=== PATIENT | female | born 1990 | race Caucasian/White ===

== ENCOUNTER 2022-12-01 10:45 | Observation (INO) ==
--- NOTE | 2022-12-01 10:55 | ED.PDOC ---
General ED Provider: Dr. JANES LOPES MD Chief Complaint: Rectal Pain Stated Complaint: Patient presents with generalized abdominal pain, lightheadedness, nausea, hematochezia for 12 hours. She has had 5 bloody stools. Patient reports similar episode 2 years ago for which no bleeding site could be located. Denies fever, chills, melena, hematemesis or urinary tract symptoms. She did have a hysterectomy one month ago and did receive antibiotics at that time. Time Seen by Provider: 12/01/22 10:55 Mode of Arrival: Walk-In Information Source: Patient Primary Care Provider: REKHA GOODWIN MD Nursing and Triage Documentation Reviewed and Agree: Yes Does patient meet sepsis criteria?: No System Inflammatory Response Syndrome: Not Applicable Sepsis Protocol: For patient's 13 years and over: Temp is 96.8 and below OR 101 and greater Pulse >90 BPM Resp >20/minute Acutely Altered Mental Status Are patient's symptoms suggestive of a new infection, such as: -Pneumonia -Skin, Soft Tissue -Endocarditis -UTI -Bone, Joint Infection -Implantable Device -Acute Abdominal Infection -Wound Infection -Meningitis -Blood Stream Catheter Infection -Unknown Review of Systems Review Of Systems Constitutional: Reports No symptoms Eyes: Reports No symptoms Ears, Nose, Mouth, Throat: Reports No symptoms Respiratory: Reports No symptoms Cardiac: Reports No symptoms GI: Reports Abdominal pain, Diarrhea, Nausea and Rectal bleeding : Reports No symptoms Musculoskeletal: Reports No symptoms Skin: Reports No symptoms Neurological: Reports No symptoms Endocrine: Reports No symptoms Hematologic/Lymphatic: Reports No symptoms All Other Systems: Reviewed and Negative [facility] Medical History (Updated 12/01/22 @ 14:57 by JANES LOPES MD) Anemia Anxiety Surgical History (Updated 12/01/22 @ 10:58 by LILO CESPEDES RN) H/O parotidectomy H/O: hysterectomy History of appendectomy History of S/P cholecystectomy Tubal ligation status Female Reproductive History Menstrual Hx Hysterectomy: Yes Hx Tubal Ligation: Yes Physical Exam Physical Exam Appearance: Reports Ill-appearing, Well-nourished and Other (Patient is alert and in NAD.) Ill-appearing: Moderate Pain Distress: Mild Eyes: Reports Not Examined ENT: Reports Nose normal, Oropharynx normal and Dry mucosa Neck: Supple Respiratory: Reports Airway patent, Breath sounds clear and Breath sounds equal Cardiovascular: Reports No rub, No murmur and Tachycardia GI/: Reports Soft, No masses, Bowel sounds normal, No Organomegaly and Tender (Mild to moderate generalized tenderness without peritoneal signs.) Musculoskeletal: Reports Normal strength and No edema Skin: Reports Warm, Dry and Normal color Neurological: Reports Alert and Oriented Psychiatric: Reports Affect appropriate and Mood appropriate Interpretation Radiology Interpretation Radiology Interpretation By: Radiologist Exam Interpreted: CT Scan (no acute intraabdominal findings) Re-Evaluation Re-Evaluation Time of Re-Evaluation: 12:30 Status: Improved Vital Signs Stable: Yes Pain Level: Pain and nausea resolved. No further bloody stools. Re-Evaluation Time of Re-Evaluation: 14:19 Status: Unchanged Vital Signs Stable: Yes Pain Level: no further bloody stools Appearance: NAD Physician Notification Case Discussed Physician Notified: Dr Goodwin Time of Notification: 14:55 Comments: Patient care discussed with Dr Goodwin. She will be admitted for observation and have repeat H/H levels obtained. Critical Care Note Critical Care Note Total Critical Care Time (mins): 0 Course Course Hematology/Chemistry: 12/01/22 14:02 12/01/22 10:53 Orders, Labs, Meds: Lab Review 12/01/22 12/01/22 12/01/22 10:53 10:53 14:02 WBC 7.00 6.67 RBC 4.30 3.43 L Hgb 12.6 10.2 L Hct 39.7 31.9 L D MCV 92.3 93.0 MCH 29.3 29.7 MCHC 31.7 L 32.0 RDW Coeff of Luis 13.0 12.9 Plt Count 321 250 Immature Gran % (Auto) 0.1 0.1 Neut % (Auto) 52.4 56.4 Lymph % (Auto) 36.0 33.9 [place] % (Auto) 7.1 6.3 Eos % (Auto) 4.1 3.0 Baso % (Auto) 0.3 0.3 Neut # (Auto) 3.7 3.8 Lymph # (Auto) 2.5 2.3 [place] # (Auto) 0.5 0.4 Eos # (Auto) 0.3 0.2 Baso # (Auto) 0.0 0.0 Immature Gran # (Auto) 0.0 0.0 Sodium 136.6 Potassium 3.38 L Chloride 105.5 Carbon Dioxide 25.2 Anion Gap 9.28 BUN 9.9 Creatinine 0.68 Estimated GFR (MDRD) 100.00 BUN/Creatinine Ratio 14.55 Glucose 98.1 Calcium 9.56 Total Bilirubin 0.35 AST 41.4 H ALT 38.7 H Alkaline Phosphatase 70.1 Total Protein 8.50 H Albumin 4.72 Globulin 3.78 Albumin/Globulin Ratio 1.24 Lipase 67.8 Orders Category Date Time Status PLACE PAT[facility] (MONITORED BED ADMISSION 12/01/22 14:49 Ordered ) ACTIVITY .Up ad Kimmy CARE 12/01/22 14:49 Ordered INTAKE & OUTPUT Q8HR CARE 12/01/22 14:49 Ordered IP: INSERT SALINE LOCK ONCE CARE 12/01/22 14:49 Ordered NPO REMINDER: IMAGING ONCE CARE 12/01/22 11:00 Completed TELEMETRY MONITORING TELE CARE 12/01/22 14:49 Ordered VITAL SIGNS Q8HR CARE 12/01/22 14:49 Ordered REGULAR DIET DIETARY 12/01/22 Dinner Ordered BMP [BASIC METABOLIC PANEL] Timed LAB 12/02/22 07:00 Ordered CBC W/ AUTO DIFF Routine LAB 12/02/22 07:00 Ordered CBC W/ AUTO DIFF Stat LAB 12/01/22 10:53 Completed CBC W/ AUTO DIFF Stat LAB 12/01/22 14:02 Completed CBC W/ AUTO DIFF Timed LAB 12/01/22 22:00 Ordered CMP [COMPREHENSIVE METABOLIC PANEL] Stat LAB 12/01/22 10:53 Completed COVID [SARS COV-2 RNA RAPID DESHAWN] Stat LAB 12/01/22 Ordered LIPASE Stat LAB 12/01/22 10:53 Completed URINALYSIS C & S IF INDICATED Stat LAB 12/01/22 10:59 Uncollected Ketorolac Tromethamine [Toradol] MEDS 12/01/22 10:59 Discontinued 30 mg IVP ONCE STA Ondansetron HCl/Pf [Zofran 4 mg/2 ml] MEDS 12/01/22 10:59 Discontinued 8 mg IVP ONCE STA Ondansetron HCl/Pf [Zofran 4 mg/2 ml] MEDS 12/01/22 14:49 Ordered 8 mg IVP Q8H PRN Potassium Chloride in 0.9%NaCl [Sodium Chloride 0.9%- MEDS 12/01/22 15:00 Ordered KCl 20 Meq] 1,000 ml IV 100 mls/hr Sodium Chloride 0.9% [Sodium Chloride] 1,000 ml MEDS 12/01/22 10:59 Discontinued IV BOLUS Sodium Chloride 0.9% [Sodium Chloride] 1,000 ml MEDS 12/01/22 12:29 Discontinued IV BOLUS RESUSCITATION STATUS Routine OTHERS 12/01/22 14:[address] ABDOMEN/PELVIS W CONTRAST Stat RADS 12/01/22 10:59 Completed Medications Discontinued Medications Generic Name Dose Route Start Last Admin Trade Name Freq PRN Reason Stop Dose Admin Sodium Chloride 1,000 mls @ 1,000 mls/hr 12/01/22 10:59 12/01/22 11:07 Sodium Chloride IV 12/01/22 11:58 1,000 mls/hr BOLUS STA Administration Sodium Chloride 1,000 mls @ 1,000 mls/hr 12/01/22 12:29 12/01/22 12:33 Sodium Chloride IV 12/01/22 13:28 1,000 mls/hr BOLUS STA Administration Ketorolac Tromethamine 30 mg 12/01/22 10:59 12/01/22 11:07 Ketorolac Tromethamine 30 Mg/Ml Vial IVP 12/01/22 11:00 30 mg ONCE STA Administration Ondansetron HCl 8 mg 12/01/22 10:59 12/01/22 11:06 Ondansetron Hcl/Pf 4 Mg/2 Ml Sdv IVP 12/01/22 11:00 8 mg ONCE STA Administration Vital Signs: Temp Pulse Resp BP Pulse Ox 12/01/22 10:46 98.7 F 116 H 20 113/65 100 Discharge Plan Discharge Patient Disposition: PLACED OBSERVATION Discharge Problem: Acute lower gastrointestinal bleeding, Hypokalemia Prescriptions: No Action No Reported Medications 0 Qty: 0 Did you review [place] [employer] for ALL controlled substances?: Not Applicable ED Provider: JANES LOPES Condition: Stable Physician Progress Note: []
[2022-12-01] MEDS ORDERED: ZOFRAN 4 MG/2 ML IVP STA (10:59)
[2022-12-01] MEDS ORDERED: SODIUM CHLORIDE 1,000 ML IV STA ×2 (10:59→12:29)
[2022-12-01] MEDS ORDERED: TORADOL IVP STA (10:59)
[2022-12-01 11:05] LABS: BASOPHILS % (AUTO) 0.3 % (0.0-3.0); EOSINOPHILS # (AUTO) 0.3 K/ul (0.0-0.7); EOSINOPHILS % (AUTO) 4.1 % (0.0-7.0); HEMATOCRIT 39.7 % (37.0-47.0); HEMOGLOBIN 12.6 g/dl (12.0-16.0); IMMATURE GRANULOCYTE % (AUTO) 0.1 % (0.0-5.0); LYMPHOCYTES # (AUTO) 2.5 K/uL (0.60-3.4); MEAN CORPUSCULAR HEMOGLOBIN 29.3 pg (27.0-31.0); MEAN CORPUSCULAR HGB CONC 31.7 (31.8-35.4); MEAN CORPUSCULAR VOLUME 92.3 fl (81.0-99.0); MONOCYTES # (AUTO) 0.5 K/uL (0.4-2.0); MONOCYTES % (AUTO) 7.1 (0-10); NEUTROPHILS # (AUTO) 3.7 K/ul (2.0-6.9); NEUTROPHILS % (AUTO) 52.4 % (42.2-75.2); PLATELET COUNT 321 10^3/uL (140-440)
[2022-12-01 11:13] LABS: ALANINE AMINOTRANSFERASE 38.7 U/L (0-35); ALBUMIN 4.72 g/dL (3.5-5.0); ALKALINE PHOSPHATASE 70.1 U/L (38-126); ASPARTATE AMINO TRANSFERASE 41.4 U/L (14-36); BILIRUBIN,TOTAL 0.35 mg/dL (0.2-1.3); BLOOD UREA NITROGEN 9.9 mg/dL (7-17); CALCIUM 9.56 mg/dL (8.4-10.2); CARBON DIOXIDE 25.2 mmol/L (22-30.0); CHLORIDE 105.5 mmol/L (98-107); CREATININE 0.68 mg/dL (0.60-1.30); GLUCOSE 98.1 mg/dL (74-106); LIPASE 67.8 U/L (23-300); POTASSIUM 3.38 mmol/L (3.5-5.1); SODIUM 136.6 mmol/L (134.5-145); TOTAL PROTEIN 8.5 g/dL (6.3-8.2)
--- NOTE | 2022-12-01 12:23 | CT ---
EXAM: CT ABDOMEN AND PELVIS WITH CONTRAST HISTORY: Hematochezia TECHNIQUE: CT acquisition of the abdomen and pelvis from the lower thorax through the pelvis followin g IV contrast administration. 2-D coronal and sagittal reformatted images were obtained from the axi al source images. CT Dose Reduction Techniques Performed: Yes. COMPARISON: None. FINDINGS: Lower Thorax: Within normal limits. Liver: No mass. Normal morphology. Biliary: There has been cholecystectomy Pancreas: No mass or evidence of pancreatitis. No duct dilation. Spleen: No mass. No splenomegaly. Adrenals: No mass. Kidneys/Ureters: There is right renal cortical scarring. There is a 4 mm right upper pole stone. Th ere is no left nephrolithiasis. No hydronephrosis. GI Tract: No bowel dilation. No bowel wall thickening. Peritoneal Cavity: No ascites. No free air. Retroperitoneum: No mass or fluid collection. Lymph Nodes: No lymphadenopathy. Vasculature: No aortic aneurysm. Pelvis: Left ovarian 2.2 x 1.2 cm hemorrhagic versus corpus luteal cyst. Bladder is normal. Bones/Soft Tissues: No fracture or lytic lesion. Visualized abdominal wall soft tissues are unremarka ble. IMPRESSION: 1. No acute inflammatory process. Right nephrolithiasis and renal cortical scarring. Cholecystecto my. All CT scans are performed using dose optimization techniques as appropriate to the performed exam an d include at least one of the following: Automated exposure control, adjustment of the mA and/or kV according t o size, and the use of iterative reconstruction technique.
[2022-12-01 14:06] LABS: BASOPHILS % (AUTO) 0.3 % (0.0-3.0); EOSINOPHILS # (AUTO) 0.2 K/ul (0.0-0.7); HEMOGLOBIN 10.2 g/dl (12.0-16.0); IMMATURE GRANULOCYTE % (AUTO) 0.1 % (0.0-5.0); LYMPHOCYTES # (AUTO) 2.3 K/uL (0.60-3.4); LYMPHOCYTES % (AUTO) 33.9 (10.0-50.0); MEAN CORPUSCULAR HEMOGLOBIN 29.7 pg (27.0-31.0); MONOCYTES # (AUTO) 0.4 K/uL (0.4-2.0); MONOCYTES % (AUTO) 6.3 (0-10); NEUTROPHILS # (AUTO) 3.8 K/ul (2.0-6.9); NEUTROPHILS % (AUTO) 56.4 % (42.2-75.2); PLATELET COUNT 250 10^3/uL (140-440); RDW COEFFICIENT OF VARIATION 12.9 % (11.6-14.8); RED BLOOD COUNT 3.43 10^6/ul (4.20-5.40); WHITE BLOOD COUNT 6.67 K/ul (4.6-10.2)
[2022-12-01 14:08] LABS: HEMATOCRIT 31.9 % (37.0-47.0)
[2022-12-01] MEDS ORDERED: ZOFRAN 4 MG/2 ML IVP PRN (14:49)
--- NOTE | 2022-12-01 15:05 | PCM ---
Chief Complaint Chief Complaint: bloody bowel movements History of Present Illness History of Present Illness: Patient was admitted after having had multiple grossly bloody stools, nausea, abdominal pain and lightheadedness. She had a pulse in the 120s on admission and her Hgb at that time was 12.6. Patient received 2L NS and her pulse fell into the 80s and repeat Hgb was noted to be 10.2. CT scan of the abd/pelvis failed to demonstrate a source of the GI bleeding. She is admitted for observation and repeat H/H levels. Review of Systems Constitutional: Reports No symptoms Eyes: Reports No symptoms Ears: Reports No symptoms Nose: Reports No symptoms Throat: Reports No symptoms Mouth: Reports No symptoms Respiratory: Reports No symptoms Cardiovascular: Reports Other (lightheadedness) Gastrointestinal: Reports Abdominal pain, Nausea and Hematochezia Genitourinary: Reports No symptoms Neurological: Reports No symptoms Musculoskeletal: Reports No symptoms Skin: Reports No symptoms Immunology: Reports No symptoms Hematology: Reports No symptoms Endocrine: Reports No symptoms Psychiatric: Reports No symptoms Habits: Denies Tobacco use, Substance use, Alcohol use or Other Allergies Allergies Allergy/AdvReac Type Severity Reaction Status Date / Time acetaminophen [From Vicodin] AdvReac Unknown Verified 12/01/22 10:59 hydrocodone [From Vicodin] AdvReac Unknown Verified 12/01/22 10:59 tramadol AdvReac Unknown Verified 12/01/22 10:59 PFSH Medical History (Updated 12/01/22 @ 14:57 by JANES LOPES MD) Anemia Anxiety Surgical History (Updated 12/01/22 @ 10:58 by LILO CESPEDES RN) H/O parotidectomy H/O: hysterectomy History of appendectomy History of S/P cholecystectomy Tubal ligation status Medications Medications: Medications Generic Name Dose Route Start Last Admin Trade Name Freq PRN Reason Stop Dose Admin Potassium Chloride/Sodium Chloride 1,000 mls @ 100 mls/hr 12/01/22 15:00 Sodium Chloride 0.9%-Kcl 20 Meq IV .Q10H MONE Ondansetron HCl 8 mg 12/01/22 14:49 Ondansetron Hcl/Pf 4 Mg/2 Ml Sdv IVP Q8H PRN Nausea / Vomiting Body Composition Height: 5 ft Weight: 66 kg Body Mass Index (BMI): 28.4 Vital Signs Temperature: 98.7 F Pulse Rate: 116 Respiratory Rate: 20 Blood Pressure: 113/65 O2 Sat by Pulse Oximetry: 100 Physical Examination Appearance: Reports Ill-appearing, No pain distress and Well-nourished Ill-appearing: Mild Pain Distress: None Eyes: Reports RENALDO, EOMI and Conjunctiva clear ENT: Reports Nose normal and Oropharynx normal Neck: Supple Respiratory: Reports Airway patent, Breath sounds clear and Breath sounds equal Cardiovascular: Reports Pulses normal, No rub, No murmur and Tachycardia GI/: Reports Soft, No masses, Bowel sounds normal, No Organomegaly and Tender (Mild generalized tenderness. No peritoneal signs.) Musculoskeletal: Reports Normal strength, ROM intact and No edema Skin: Reports Warm, Dry and Normal color Neurological: Reports Sensation intact, Motor intact, Alert and Oriented Psychiatric: Reports Affect appropriate and Mood appropriate Lab/Tests/Diagnostic Imaging Lab/Tests/Diagnostic Imaging: Lab Review 12/01/22 12/01/22 12/01/22 10:53 10:53 14:02 WBC 7.00 6.67 RBC 4.30 3.43 L Hgb 12.6 10.2 L Hct 39.7 31.9 L D MCV 92.3 93.0 MCH 29.3 29.7 MCHC 31.7 L 32.0 RDW Coeff of Luis 13.0 12.9 Plt Count 321 250 Immature Gran % (Auto) 0.1 0.1 Neut % (Auto) 52.4 56.4 Lymph % (Auto) 36.0 33.9 [place] % (Auto) 7.1 6.3 Eos % (Auto) 4.1 3.0 Baso % (Auto) 0.3 0.3 Neut # (Auto) 3.7 3.8 Lymph # (Auto) 2.5 2.3 [place] # (Auto) 0.5 0.4 Eos # (Auto) 0.3 0.2 Baso # (Auto) 0.0 0.0 Immature Gran # (Auto) 0.0 0.0 Sodium 136.6 Potassium 3.38 L Chloride 105.5 Carbon Dioxide 25.2 Anion Gap 9.28 BUN 9.9 Creatinine 0.68 Estimated GFR (MDRD) 100.00 BUN/Creatinine Ratio 14.55 Glucose 98.1 Calcium 9.56 Total Bilirubin 0.35 AST 41.4 H ALT 38.7 H Alkaline Phosphatase 70.1 Total Protein 8.50 H Albumin 4.72 Globulin 3.78 Albumin/Globulin Ratio 1.24 Lipase 67.8 Orders Category Date Time Status PLACE PATIENT OBSERVATION .TO [facility] (MONITORED BED ADMISSION 12/01/22 14:49 Active ) ACTIVITY .Up ad Kimmy CARE 12/01/22 14:49 Active INTAKE & OUTPUT Q8HR CARE 12/01/22 14:49 Active IP: INSERT SALINE LOCK ONCE CARE 12/01/22 14:49 Active NPO REMINDER: IMAGING ONCE CARE 12/01/22 11:00 Completed TELEMETRY MONITORING TELE CARE 12/01/22 14:49 Active VITAL SIGNS Q8HR CARE 12/01/22 14:49 Active REGULAR DIET DIETARY 12/01/22 Dinner Ordered BMP [BASIC METABOLIC PANEL] Timed LAB 12/02/22 07:00 Ordered CBC W/ AUTO DIFF Routine LAB 12/02/22 07:00 Ordered CBC W/ AUTO DIFF Stat LAB 12/01/22 10:53 Completed CBC W/ AUTO DIFF Stat LAB 12/01/22 14:02 Completed CBC W/ AUTO DIFF Timed LAB 12/01/22 22:00 Ordered CMP [COMPREHENSIVE METABOLIC PANEL] Stat LAB 12/01/22 10:53 Completed COVID [SARS COV-2 RNA RAPID DESHAWN] Stat LAB 12/01/22 14:45 Received LIPASE Stat LAB 12/01/22 10:53 Completed URINALYSIS C & S IF INDICATED Stat LAB 12/01/22 10:59 Uncollected Ketorolac Tromethamine [Toradol] MEDS 12/01/22 10:59 Discontinued 30 mg IVP ONCE STA Ondansetron HCl/Pf [Zofran 4 mg/2 ml] MEDS 12/01/22 10:59 Discontinued 8 mg IVP ONCE STA Ondansetron HCl/Pf [Zofran 4 mg/2 ml] MEDS 12/01/22 14:49 Ordered 8 mg IVP Q8H PRN Potassium Chloride in 0.9%NaCl [Sodium Chloride 0.9%- MEDS 12/01/22 15:00 Ordered KCl 20 Meq] 1,000 ml IV 100 mls/hr Sodium Chloride 0.9% [Sodium Chloride] 1,000 ml MEDS 12/01/22 10:59 Discontinued IV BOLUS Sodium Chloride 0.9% [Sodium Chloride] 1,000 ml MEDS 12/01/22 12:29 Discontinued IV BOLUS RESUSCITATION STATUS Routine OTHERS 12/01/22 14:[address] ABDOMEN/PELVIS W CONTRAST Stat RADS 12/01/22 10:59 Completed Medications Generic Name Dose Route Start Last Admin Trade Name Raudel PRN Reason Stop Dose Admin Potassium Chloride/Sodium Chloride 1,000 mls @ 100 mls/hr 12/01/22 15:00 Sodium Chloride 0.9%-Kcl 20 Meq IV .Q10H MONE Ondansetron HCl 8 mg 12/01/22 14:49 Ondansetron Hcl/Pf 4 Mg/2 Ml Sdv IVP Q8H PRN Nausea / Vomiting Discontinued Medications Generic Name Dose Route Start Last Admin Trade Name Freq PRN Reason Stop Dose Admin Sodium Chloride 1,000 mls @ 1,000 mls/hr 12/01/22 10:59 12/01/22 11:07 Sodium Chloride IV 12/01/22 11:58 1,000 mls/hr BOLUS STA Administration Sodium Chloride 1,000 mls @ 1,000 mls/hr 12/01/22 12:29 12/01/22 12:33 Sodium Chloride IV 12/01/22 13:28 1,000 mls/hr BOLUS STA Administration Ketorolac Tromethamine 30 mg 12/01/22 10:59 12/01/22 11:07 Ketorolac Tromethamine 30 Mg/Ml Vial IVP 12/01/22 11:00 30 mg ONCE STA Administration Ondansetron HCl 8 mg 12/01/22 10:59 12/01/22 11:06 Ondansetron Hcl/Pf 4 Mg/2 Ml Sdv IVP 12/01/22 11:00 8 mg ONCE STA Administration Assessment (1) Acute lower gastrointestinal bleeding: Status: Acute Code(s): K92.2 - Gastrointestinal hemorrhage, unspecified SNOMED Code(s): 56918642 Assessment: No further bloody stools since admission. (2) Hypokalemia: Status: Acute Code(s): E87.6 - Hypokalemia SNOMED Code(s): 97416297 Plan Plan: Observation on telemetry. Replace potassium deficit. Repeat serial H/H levels. IV fluid hydration.
[2022-12-01 15:25] LABS: SARS COV-2 RNA RAPID NAAT NEGATIVE (NEGATIVE)
[2022-12-01 16:22] VITALS: BMI 28.5
[2022-12-01] MEDS: SODIUM CHLORIDE 0.9%-KCL 20 MEQ 1,000 ML IV SCH (16:39)
[2022-12-01] MEDS: FLEXERIL PO SCH (20:43)
[2022-12-01 21:11] LABS: BILIRUBIN,URINE Negative (NEGATIVE); CLARITY,URINE Clear (CLEAR); COLOR,URINE Yellow (YELLOW); GLUCOSE, URINE (UA) Negative (NEGATIVE); KETONES,URINE Negative (NEGATIVE); LEUKOCYTE ESTERASE ,URINE Negative (NEGATIVE); NITRITE,URINE Negative (NEGATIVE); PH,URINE 8.5 (5-9); PROTEIN,URINE Negative (NEGATIVE); URINE, BLOOD Negative (NEGATIVE); UROBILINOGEN,URINE 0.2 (0.2)
[2022-12-01 21:54] LABS: BASOPHILS % (AUTO) 0.5 % (0.0-3.0); EOSINOPHILS # (AUTO) 0.3 K/ul (0.0-0.7); HEMATOCRIT 32.1 % (37.0-47.0); HEMOGLOBIN 10.4 g/dl (12.0-16.0); IMMATURE GRANULOCYTE % (AUTO) 0.2 % (0.0-5.0); LYMPHOCYTES # (AUTO) 2.5 K/uL (0.60-3.4); LYMPHOCYTES % (AUTO) 44.2 (10.0-50.0); MEAN CORPUSCULAR HGB CONC 32.4 (31.8-35.4); MEAN CORPUSCULAR VOLUME 92.5 fl (81.0-99.0); MONOCYTES # (AUTO) 0.5 K/uL (0.4-2.0); MONOCYTES % (AUTO) 9.2 (0-10); NEUTROPHILS # (AUTO) 2.3 K/ul (2.0-6.9); NEUTROPHILS % (AUTO) 39.9 % (42.2-75.2); PLATELET COUNT 270 10^3/uL (140-440); RDW COEFFICIENT OF VARIATION 12.8 % (11.6-14.8); RED BLOOD COUNT 3.47 10^6/ul (4.20-5.40); WHITE BLOOD COUNT 5.68 K/ul (4.6-10.2)
[2022-12-02] MEDS ORDERED: ATIVAN PO ONE (00:01)
[2022-12-02] MEDS: SODIUM CHLORIDE 0.9%-KCL 20 MEQ 1,000 ML IV SCH (02:06)
[2022-12-02 05:24] LABS: BASOPHILS % (AUTO) 0.4 % (0.0-3.0); EOSINOPHILS # (AUTO) 0.4 K/ul (0.0-0.7); EOSINOPHILS % (AUTO) 7.7 % (0.0-7.0); HEMATOCRIT 31.6 % (37.0-47.0); HEMOGLOBIN 9.9 g/dl (12.0-16.0); LYMPHOCYTES # (AUTO) 2.1 K/uL (0.60-3.4); LYMPHOCYTES % (AUTO) 44.1 (10.0-50.0); MEAN CORPUSCULAR HEMOGLOBIN 29.2 pg (27.0-31.0); MEAN CORPUSCULAR HGB CONC 31.3 (31.8-35.4); MEAN CORPUSCULAR VOLUME 93.2 fl (81.0-99.0); MONOCYTES # (AUTO) 0.4 K/uL (0.4-2.0); MONOCYTES % (AUTO) 8.5 (0-10); NEUTROPHILS # (AUTO) 1.9 K/ul (2.0-6.9); NEUTROPHILS % (AUTO) 39.3 % (42.2-75.2); PLATELET COUNT 252 10^3/uL (140-440); RDW COEFFICIENT OF VARIATION 12.7 % (11.6-14.8); RED BLOOD COUNT 3.39 10^6/ul (4.20-5.40); WHITE BLOOD COUNT 4.81 K/ul (4.6-10.2)
[2022-12-02 05:36] LABS: CALCIUM 8.17 mg/dL (8.4-10.2); CARBON DIOXIDE 24.2 mmol/L (22-30.0); CHLORIDE 110.2 mmol/L (98-107); CREATININE 0.57 mg/dL (0.60-1.30); GLUCOSE 100.2 mg/dL (74-106); POTASSIUM 3.88 mmol/L (3.5-5.1); SODIUM 136.3 mmol/L (134.5-145)
--- NOTE | 2022-12-02 09:08 | PCM.DC ---
Final Diagnosis: gi bleed, anemia 30 mi spent on discharge summary Physical Exam Appearance: Well-appearing Ill-appearing: None Pain Distress: None Eyes: Conjunctiva clear Respiratory: Airway patent Skin: Normal color Neurological: Alert and Oriented Psychiatric: Affect appropriate (1) Acute lower gastrointestinal bleeding: Status: Acute Code(s): K92.2 - Gastrointestinal hemorrhage, unspecified SNOMED Code(s): 10507823 (2) Hypokalemia: Status: Acute Code(s): E87.6 - Hypokalemia SNOMED Code(s): 80772282 Prognosis/Condition at Discharge: good Medications at Discharge: home meds Lab/Diagnostics: Hb 9.9 Education Provided to Patient and Family: none Follow-ups: transfer accepted by Dr Arndt at hospital Discharge Disposition: Transfer Hospital Course: stable Plan: transfer
[2022-12-02] MEDS: FLEXERIL PO SCH (09:28)
[2022-12-02 09:40] VITALS: BP 94/60; TEMP 98.6
== END 2022-12-02 10:40 ==
LOC: MEDSURG A 10:45 → ED 10:45 → MEDSURG A 15:57
PROVIDERS: ADMIT Surgery; ATTEND Emergency Medicine Emergency Medical Services
DX: D64.9 Anemia, unspecified; R19.7 Diarrhea, unspecified; Z79.891 Long term (current) use of opiate analgesic; Z51.81 Encounter for therapeutic drug level monitoring; Z20.822 Contact with and (suspected) exposure to COVID-19; K92.2 Gastrointestinal hemorrhage, unspecified; E87.6 Hypokalemia; Z90.710 Acquired absence of both cervix and uterus